=== PATIENT | male | born 1955 | race Caucasian/White ===

== ENCOUNTER 2020-07-08 14:11 | Inpatient (IN) ==
[2020-07-17] MEDS ORDERED: DEXTROSE 50% 25 GM/50 ML VIAL IV PRN (08:10)
[2020-07-17] MEDS ORDERED: CEFUROXIME INJ 1,500 MG in SYRINGE 1 EACH IV ONE (08:10)
[2020-07-17] MEDS ORDERED: GLUCAGON 1 MG VIAL IM PRN (08:10)
[2020-07-17 08:41] LABS: ABG Base Excess 6.1 MMOL/L (-2.5-2.5); ABG HCO3 30.1 MMOL/L (20-26); ABG Oxygen Saturation 97.6 % (95-100); ABG PCO2 41.2 MM HG (35-48); ABG PH 7.482 (7.35-7.45); ABG PO2 97.5 MM HG (80-95); ABG TCO2 31.4 MMOL/L (23-27)
[2020-07-17] MEDS ORDERED: CHLORHEXIDINE 4% SOLN 118 ML BOTTLE TOP SCH (09:00)
[2020-07-17] MEDS ORDERED: NITROGLYCERIN SL 0.4 MG TABLET SL PRN (09:48)
[2020-07-17] MEDS ORDERED: CLORAZEPATE 3.75 MG TABLET PO PRN (09:48)
[2020-07-17] MEDS ORDERED: MORPHINE 4 MG/1 ML VIAL IV PRN (09:48)
[2020-07-17] MEDS ORDERED: hydrALAZINE 20 MG/1 ML VIAL IV PRN (09:49)
[2020-07-17] MEDS ORDERED: PANTOPRAZOLE 40 MG TABLET PO ONE (10:37)
[2020-07-17] MEDS ORDERED: DIAZEPAM 5 MG TABLET PO ONE (10:37)
[2020-07-17 10:40] LABS: Basophils # 0.1 10*3/uL (0.0-0.2); Eosinophils # 0.2 10*3/uL (0.0-0.87); Eosinophils % 4.5 % (0.00-10.9); Hematocrit 43.9 VOL% (42.0-52.0); Hemoglobin 15.8 GM/DL (14.0-18.0); Immature Granulocytes % 0.2 %; Immature Granulocytes Absolute 0.01 #; Lymphocytes # 1.1 10*3/uL (1.4-4.0); Lymphocytes % 21.3 % (21.2-54.2); Mean Corpuscular Volume 91.3 FL (87-102); Mean Platelet Volume 9.6 FL (9.6-12.0); Monocytes % 7.9 % (1.7-12.7); Neutrophils % 65.1 % (38.7-73.9); Platelet Count 158 T/CUMM (130-400); Red Blood Count 4.81 MC/CUMM (3.8-5.5); Red Cell Distribution Width 12.6 % (9.3-17.3); White Blood Count 5.1 T/CUMM (4-12)
[2020-07-17] MEDS: CHLORHEXIDINE 0.12% ORAL RINSE 60 ML BOTTLE SWISH/SPIT SCH ×2 (10:42→21:56)
[2020-07-17 11:01] LABS: Albumin 3.8 G/DL (3.4-5.0); Bilirubin,Total 0.8 MG/DL (0.2-1.0); Osmolality,Calculated 282.3 MOS/KG (273-304)
[2020-07-17] MEDS: CHLORHEXIDINE 4% SOLN 118 ML BOTTLE TOP SCH ×2 (15:32→21:56)
[2020-07-18] MEDS ORDERED: PAPAVERINE 60 MG/2 ML VIAL ONE (05:19)
[2020-07-18] MEDS ORDERED: VANCOMYCIN 1,000 MG VIAL ONE (05:19)
[2020-07-18] MEDS ORDERED: VANCOMYCIN 500 MG VIAL ONE (05:19)
[2020-07-18] MEDS: CHLORHEXIDINE 4% SOLN 118 ML BOTTLE TOP SCH (05:45)
[2020-07-18] MEDS ORDERED: AMINOCAPROIC ACID 5,000 MG/20 ML VIAL ONE ×4 (05:58→05:59)
[2020-07-18] MEDS ORDERED: SODIUM CHLORIDE 0.9% 250 ML IV ONE (06:00)
[2020-07-18] MEDS ORDERED: DIAZEPAM 5 MG TABLET PO ONE (06:00)
[2020-07-18] MEDS ORDERED: CEFUROXIME INJ 1,500 MG in SYRINGE 1 EACH IV ONE (06:00)
[2020-07-18] MEDS ORDERED: PANTOPRAZOLE 40 MG TABLET PO ONE (06:00)
[2020-07-18] MEDS ORDERED: MINERAL OIL/PETROLATUM OPH OINT 3.5 GM TUBE ONE (06:04)
[2020-07-18] MEDS ORDERED: VECURONIUM 10 MG VIAL IV ONE ×4 (06:09→09:40)
[2020-07-18] MEDS ORDERED: LIDOCAINE 2% 5 ML VIAL ONE ×2 (06:10→10:25)
[2020-07-18] MEDS ORDERED: SUFentanil 250 MCG/5 ML AMP ONE ×2 (06:11→07:56)
[2020-07-18] MEDS ORDERED: MIDAZOLAM 10 MG/2 ML VIAL ONE ×4 (06:11→09:38)
[2020-07-18] MEDS ORDERED: ETOMIDATE 40 MG/20 ML VIAL IV ONE (06:11)
[2020-07-18] MEDS ORDERED: CALCIUM CHLORIDE 1,000 MG/10 ML VIAL IV ONE ×2 (06:16→10:38)
[2020-07-18 07:42] LABS: ABG Base Excess 2.5 MMOL/L (-2.5-2.5); ABG HCO3 26.6 MMOL/L (20-26); ABG Oxygen Saturation 99.9 % (95-100); ABG PCO2 43.6 MM HG (35-48); ABG PH 7.409 (7.35-7.45); ABG TCO2 23.8 MMOL/L (23-27); Glucose Heart Surgery 105 MG/DL (74-106); Hematocrit Heart Surgery 42.7 PERCENT (42-52); Hemoglobin Heart Surgery 13.9 G/DL (14.0-18.0); Ionized Calcium Arterial 1.17 MMOL/L (1.21-1.46); PCO2 Patient Temp Arterial 43.6 MMHG; PH Patient Temp Arterial 7.409; Patient Temperature 37 CELCIUS; Potassium Heart/CVR 3.3 MMOL/L (3.5-5.1); Sodium Heart/CVR 141 MMOL/L (135-145)
[2020-07-18] MEDS ORDERED: SUCCINYLCHOLINE 200 MG/10 ML VIAL ONE (08:03)
[2020-07-18 08:53] LABS: Bilirubin,Urine Negative (Negative); Blood, Urine Negative (Negative); Glucose,Urine (UA) Negative (Negative); Ketones,Urine Negative (Negative); Mucus,Urine Occasional /LPF (Occasional); Nitrite,Urine Negative (Negative); Protein,Urine Negative; RBC,Urine 1 /HPF (0-4); Squamous Epithelial Cell,Urine Occasional /HPF (0-10); Urine Appearance CLEAR (Clear); Urine Color Yellow (Yellow); Urine Specific Gravity 1.019 (1.001-1.035); WBC,Urine <1 /HPF (0-6)
[2020-07-18 09:02] LABS: ABG Base Excess 3.9 MMOL/L (-2.5-2.5); ABG HCO3 27.6 MMOL/L (20-26); ABG Oxygen Saturation 81.6 % (95-100); ABG PCO2 41.7 MM HG (35-48); ABG PH 7.442 (7.35-7.45); ABG PO2 45.7 MM HG (80-95); ABG TCO2 25.8 MMOL/L (23-27); Glucose Heart Surgery 299 MG/DL (74-106); Hematocrit Heart Surgery 31.8 PERCENT (42-52); Hemoglobin Heart Surgery 10.3 G/DL (14.0-18.0); Ionized Calcium Arterial 0.97 MMOL/L (1.21-1.46); PH Patient Temp Arterial 7.486; PO2 Patient Temp Arterial 37.1 MM HG; Patient Temperature 34 CELCIUS; Potassium Heart/CVR 4.2 MMOL/L (3.5-5.1); Sodium Heart/CVR 131 MMOL/L (135-145)
[2020-07-18 09:35] LABS: Hemoglobin Heart Surgery 11.5 G/DL (14.0-18.0); PH Patient Temp Venous 7.495; PO2 Patient Temp Venous 40.7 MM HG; Potassium Heart/CVR 3.7 MMOL/L (3.5-5.1); VBG Base Excess 3.6 MEQ/L (0-4); VBG HCO3 27.9 MEQ/L (24-28); VBG Oxygen Saturation 85.2 %; VBG PCO2 41.1 MMHG (41-51); VBG PH 7.45; VBG PO2 50.2 MMHG (17-40)
[2020-07-18] MEDS ORDERED: PHENYLEPHRINE DRIP 40 MG/250 ML PREMIX IV ONE (09:40)
[2020-07-18] MEDS ORDERED: ALBUMIN 5% 12.5 GM/250 ML VIAL IV ONE (09:40)
[2020-07-18] MEDS: SODIUM CHLORIDE 0.9% 1,000 ML IV SCH (10:03)
[2020-07-18] MEDS: CHLORHEXIDINE 0.12% ORAL RINSE 60 ML BOTTLE SWISH/SPIT SCH ×2 (10:03→20:17)
[2020-07-18 10:24] LABS: ABG Base Excess 2.2 MMOL/L (-2.5-2.5); ABG HCO3 26.4 MMOL/L (20-26); ABG TCO2 22.7 MMOL/L (23-27); Glucose Heart Surgery 167 MG/DL (74-106); Hematocrit Heart Surgery 33.3 PERCENT (42-52); Hemoglobin Heart Surgery 10.8 G/DL (14.0-18.0); Ionized Calcium Arterial 1.17 MMOL/L (1.21-1.46); Patient Temperature 37 CELCIUS; Potassium Heart/CVR 3.3 MMOL/L (3.5-5.1); Sodium Heart/CVR 136 MMOL/L (135-145)
[2020-07-18] MEDS ORDERED: ALBUMIN 25% 25 GM/100 ML VIAL IV ONE (10:25)
[2020-07-18] MEDS ORDERED: methylPREDNISolone SOD SUC 1,000 MG/8 ML VIAL ONE (10:26)
[2020-07-18] MEDS ORDERED: MANNITOL 100 GM/500 ML BAG IV ONE (10:26)
[2020-07-18] MEDS ORDERED: HEPARIN/NACL 0.9% 2 UNITS/ML 500 ML IV ONE (10:26)
[2020-07-18] MEDS ORDERED: PHENYLEPHRINE DRIP 20 MG/250 ML PREMIX IV ONE (10:26)
[2020-07-18] MEDS ORDERED: SEVOFLURANE 1 UNIT/15 MINUTE INH ONE (10:26)
[2020-07-18] MEDS ORDERED: DEXTROSE 5% KCL 20 MEQ 20 MEQ/1,000 ML BAG IV ONE (10:26)
[2020-07-18] MEDS ORDERED: MAGNESIUM SULFATE 5 GM/10 ML VIAL IV ONE (10:26)
[2020-07-18] MEDS ORDERED: PROTAMINE SULFATE 250 MG/25 ML VIAL IV ONE (10:26)
[2020-07-18] MEDS ORDERED: LACTATED RINGERS 1,000 ML IV ONE (10:27)
[2020-07-18] MEDS ORDERED: FUROSEMIDE 20 MG/2 ML VIAL ONE (10:27)
[2020-07-18] MEDS ORDERED: SODIUM CHLORIDE 0.9% 1,000 ML IV ONE (10:27)
[2020-07-18] MEDS ORDERED: SODIUM BICARBONATE 50 MEQ/50 ML VIAL IV ONE (10:27)
[2020-07-18] MEDS ORDERED: HEPARIN 10,000 UNIT/10 ML VIAL ONE (10:27)
[2020-07-18] MEDS ORDERED: MAGNESIUM SULF RIDER 2 GM in PREMIX 1 EACH IV PRN (10:47)
[2020-07-18] MEDS ORDERED: CALCIUM CHLORIDE 1,000 MG/10 ML SYRINGE IV PRN (10:47)
[2020-07-18] MEDS ORDERED: MORPHINE 10 MG/1 ML VIAL IV PRN (10:47)
[2020-07-18] MEDS ORDERED: ACETAMINOPHEN 650 MG SUPP RECTAL PRN (10:47)
[2020-07-18] MEDS ORDERED: MAGNESIUM SULF RIDER 4 GM in PREMIX 1 EACH IV PRN (10:47)
[2020-07-18] MEDS ORDERED: CHLORHEXIDINE 4% SOLN 118 ML BOTTLE TOP PRN (10:47)
[2020-07-18] MEDS ORDERED: ONDANSETRON 4 MG/2 ML VIAL IV PRN (10:47)
[2020-07-18] MEDS ORDERED: POTASSIUM CHLORIDE RIDER 10 MEQ in PREMIX 1 EACH IV PRN (10:47)
[2020-07-18] MEDS ORDERED: INSULIN REGULAR 100 UNIT/ML IV ONE (10:47)
[2020-07-18] MEDS ORDERED: INSULIN REGULAR 100 UNIT/ML IV PRN (10:47)
[2020-07-18] MEDS ORDERED: LACTATED RINGERS 250 ML IV PRN (10:47)
[2020-07-18] MEDS ORDERED: DEXTROSE 50% 25 GM/50 ML VIAL IV PRN ×2 (10:47)
[2020-07-18] MEDS ORDERED: PHENYLEPHRINE DRIP 40 MG/250 ML PREMIX IV PRN (10:47)
[2020-07-18] MEDS ORDERED: MIDAZOLAM 2 MG/2 ML VIAL IV PRN (10:47)
[2020-07-18] MEDS ORDERED: NITROPRUSSIDE 100 MG in DEXTROSE 5% 250 ML IV PRN (10:47)
[2020-07-18] MEDS ORDERED: VECURONIUM 10 MG VIAL IV PRN ×2 (10:47)
[2020-07-18] MEDS ORDERED: MIDAZOLAM 10 MG/2 ML VIAL IV PRN (10:47)
[2020-07-18] MEDS: SODIUM CHLORIDE 0.45% 1,000 ML IV SCH ×2 (11:00)
[2020-07-18] MEDS ORDERED: INSULIN REGULAR DRIP 100 ML IV SCH (11:00)
[2020-07-18] MEDS ORDERED: NITROPRUSSIDE 50 MG/2 ML VIAL ONE (11:13)
[2020-07-18 11:32] LABS: ABG Base Excess 2.9 MMOL/L (-2.5-2.5); ABG PCO2 34.3 MM HG (35-48); ABG PH 7.487 (7.35-7.45); ABG TCO2 22.9 MMOL/L (23-27); Basophils % 0.6 % (0.0-0.8); Glucose Heart Surgery 147 MG/DL (74-106); Hematocrit Heart Surgery 36.1 PERCENT (42-52); Hemoglobin Heart Surgery 11.7 G/DL (14.0-18.0); Potassium Heart/CVR 3.8 MMOL/L (3.5-5.1); Red Cell Distribution Width 12.7 % (9.3-17.3)
[2020-07-18 11:34] LABS: Eosinophils # 0.1 10*3/uL (0.0-0.87); Immature Granulocytes % 0.4 %; Immature Granulocytes Absolute 0.02 #; Lymphocytes # 0.5 10*3/uL (1.4-4.0); Lymphocytes % 9.9 % (21.2-54.2); Mean Corpuscular HGB Conc 35.5 GM/DL (32-36); Mean Corpuscular Volume 92.4 FL (87-102); Mean Platelet Volume 9.6 FL (9.6-12.0); Monocytes % 5.6 % (1.7-12.7); Neutrophils % 81.5 % (38.7-73.9); Platelet Count 133 T/CUMM (130-400)
[2020-07-18 11:35] LABS: Hemoglobin 11.7 GM/DL (14.0-18.0); Red Blood Count 3.57 MC/CUMM (3.8-5.5)
[2020-07-18 11:45] LABS: INR 1.2; PT Patient Result 12.4 SECS (9.8-11.9); Partial Thromboplastin Time 29.2 SECS (23.9-33.8)
[2020-07-18 11:51] LABS: CKMB % 7.1 %
[2020-07-18 11:53] LABS: Troponin I 1.04 NG/ML (0.00-0.045)
[2020-07-18 12:05] LABS: Albumin 3.6 G/DL (3.4-5.0); Bilirubin,Total 1.4 MG/DL (0.2-1.0); Calcium 8.8 MG/DL (8.5-10.1); Osmolality,Calculated 287.1 MOS/KG (273-304); Total Protein 6.1 G/DL (6.4-8.3)
[2020-07-18 12:39] LABS: ABG Base Excess 2.2 MMOL/L (-2.5-2.5); ABG HCO3 26.4 MMOL/L (20-26); ABG Oxygen Saturation 98.7 % (95-100); ABG PH 7.446 (7.35-7.45); ABG TCO2 22.9 MMOL/L (23-27); Glucose Heart Surgery 146 MG/DL (74-106); Hemoglobin Heart Surgery 12.7 G/DL (14.0-18.0); Potassium Heart/CVR 3.3 MMOL/L (3.5-5.1)
[2020-07-18] MEDS: LACTATED RINGERS 1,000 ML IV PRN ×3 (12:53→16:27)
[2020-07-18] MEDS: POTASSIUM CHLORIDE RIDER 20 MEQ in PREMIX 1 EACH IV PRN ×4 (12:57→22:31)
[2020-07-18] MEDS: ALBUMIN 5% 12.5 GM in PREMIX 1 EACH IV PRN ×2 (13:36→15:50)
[2020-07-18 14:14] LABS: ABG Base Excess 1.5 MMOL/L (-2.5-2.5); ABG HCO3 25.2 MMOL/L (20-26); ABG Oxygen Saturation 97.7 % (95-100); ABG PCO2 36.5 MM HG (35-48); ABG PH 7.457 (7.35-7.45); ABG PO2 116.3 MM HG (80-95); ABG TCO2 26.3 MMOL/L (23-27); Glucose Heart Surgery 167 MG/DL (74-106); Potassium Heart/CVR 3.7 MMOL/L (3.5-5.1)
[2020-07-18] MEDS: CEFUROXIME INJ 1,500 MG in SYRINGE 1 EACH IV SCH (17:45)
[2020-07-18 18:03] LABS: ABG Base Excess -0.7 MMOL/L (-2.5-2.5); ABG HCO3 23.9 MMOL/L (20-26); ABG Oxygen Saturation 98.4 % (95-100); ABG PH 7.437 (7.35-7.45); ABG TCO2 20.6 MMOL/L (23-27); Glucose Heart Surgery 177 MG/DL (74-106); Hematocrit Heart Surgery 33.8 PERCENT (42-52); Potassium Heart/CVR 3.6 MMOL/L (3.5-5.1)
[2020-07-18] MEDS: MORPHINE 4 MG/1 ML VIAL IV PRN (18:16)
[2020-07-18] MEDS ORDERED: FUROSEMIDE 40 MG/4 ML VIAL IV PRN (19:14)
[2020-07-18 20:17] LABS: ABG Base Excess -0.9 MMOL/L (-2.5-2.5); ABG HCO3 23.7 MMOL/L (20-26); ABG Oxygen Saturation 97.8 % (95-100); ABG PCO2 38.5 MM HG (35-48); ABG PH 7.397 (7.35-7.45); ABG TCO2 21.1 MMOL/L (23-27); Glucose Heart Surgery 166 MG/DL (74-106); Hematocrit Heart Surgery 35.5 PERCENT (42-52); Hemoglobin Heart Surgery 11.5 G/DL (14.0-18.0); Potassium Heart/CVR 3.9 MMOL/L (3.5-5.1)
[2020-07-18] MEDS: KETOROLAC 30 MG/1 ML VIAL IV SCH (20:17)
[2020-07-18 20:45] LABS: CKMB % 4.8 %
[2020-07-18 20:47] LABS: Troponin I 2.74 NG/ML (0.00-0.045)
[2020-07-18 21:08] LABS: ABG Base Excess 0.1 MMOL/L (-2.5-2.5); ABG HCO3 24.9 MMOL/L (20-26); ABG Oxygen Saturation 97.2 % (95-100); ABG PCO2 40.7 MM HG (35-48); ABG PH 7.404 (7.35-7.45); ABG PO2 109.1 MM HG (80-95); ABG TCO2 26.1 MMOL/L (23-27); Glucose Heart Surgery 163 MG/DL (74-106); Hemoglobin Heart Surgery 11.7 G/DL (14.0-18.0); Potassium Heart/CVR 3.7 MMOL/L (3.5-5.1)
[2020-07-18 22:09] LABS: ABG Base Excess 0.5 MMOL/L (-2.5-2.5); ABG HCO3 24.9 MMOL/L (20-26); ABG Oxygen Saturation 97.3 % (95-100); ABG PCO2 42.6 MM HG (35-48); ABG PH 7.387 (7.35-7.45); ABG PO2 96.5 MM HG (80-95); Glucose Heart Surgery 157 MG/DL (74-106); Hematocrit Heart Surgery 34.6 PERCENT (42-52); Hemoglobin Heart Surgery 11.2 G/DL (14.0-18.0); Potassium Heart/CVR 3.8 MMOL/L (3.5-5.1)
[2020-07-19] MEDS: KETOROLAC 30 MG/1 ML VIAL IV SCH ×4 (01:23→22:11)
[2020-07-19] MEDS: MORPHINE 4 MG/1 ML VIAL IV PRN (02:01)
[2020-07-19 03:50] LABS: ABG Base Excess 2.5 MMOL/L (-2.5-2.5); ABG HCO3 27.7 MMOL/L (20-26); ABG Oxygen Saturation 96.9 % (95-100); ABG PCO2 45.8 MM HG (35-48); ABG TCO2 29.1 MMOL/L (23-27); Glucose Heart Surgery 146 MG/DL (74-106); Hemoglobin Heart Surgery 11.3 G/DL (14.0-18.0); Potassium Heart/CVR 3.9 MMOL/L (3.5-5.1)
[2020-07-19 04:07] LABS: Immature Granulocytes % 0.3 %; Immature Granulocytes Absolute 0.03 #; Lymphocytes # 0.6 10*3/uL (1.4-4.0); Lymphocytes % 6.6 % (21.2-54.2); Mean Corpuscular HGB Conc 34.4 GM/DL (32-36); Mean Corpuscular Volume 95.2 FL (87-102); Mean Platelet Volume 10.4 FL (9.6-12.0); Monocytes % 6.8 % (1.7-12.7); Neutrophils % 86.3 % (38.7-73.9); Platelet Count 136 T/CUMM (130-400); Red Blood Count 3.36 MC/CUMM (3.8-5.5); Red Cell Distribution Width 13.2 % (9.3-17.3); White Blood Count 8.7 T/CUMM (4-12)
[2020-07-19 04:19] LABS: CKMB % 3.2 %
[2020-07-19 04:22] LABS: Troponin I 3.69 NG/ML (0.00-0.045)
[2020-07-19 04:47] LABS: Albumin 3.4 G/DL (3.4-5.0); Bilirubin,Direct 0.2 MG/DL (0.0-0.20); Bilirubin,Total 0.8 MG/DL (0.2-1.0); Calcium 8.1 MG/DL (8.5-10.1); Osmolality,Calculated 285.3 MOS/KG (273-304)
[2020-07-19] MEDS: CEFUROXIME INJ 1,500 MG in SYRINGE 1 EACH IV SCH ×2 (05:55→18:51)
[2020-07-19] MEDS ORDERED: INSULIN REGULAR 100 UNIT/ML SUBCUT SCH (07:30)
[2020-07-19] MEDS ORDERED: OMEGA 3 ACID ETHYL ESTERS 1 GM CAPSULE PO SCH (09:00)
[2020-07-19] MEDS: ASPIRIN EC 325 MG TABLET PO SCH (09:29)
[2020-07-19] MEDS: CHLORHEXIDINE 0.12% ORAL RINSE 60 ML BOTTLE SWISH/SPIT SCH ×2 (09:30→22:11)
[2020-07-19] MEDS: LISINOPRIL/HCTZ 20-25 MG TABLET PO SCH (09:33)
[2020-07-19] MEDS: SODIUM CHLORIDE 0.45% 1,000 ML IV SCH ×2 (10:43)
[2020-07-19] MEDS ORDERED: ACETAMINOPHEN 325 MG TABLET PO PRN (10:49)
[2020-07-19] MEDS ORDERED: MAGNESIUM SULF RIDER 4 GM in PREMIX 1 EACH IV PRN (10:49)
[2020-07-19] MEDS ORDERED: MAGNESIUM SULF RIDER 2 GM in PREMIX 1 EACH IV PRN (10:49)
[2020-07-19] MEDS ORDERED: MAGNESIUM HYDROXIDE SUSP 30 ML UDCUP PO PRN (10:49)
[2020-07-19] MEDS ORDERED: ONDANSETRON 4 MG/2 ML VIAL IV PRN (10:49)
[2020-07-19] MEDS ORDERED: oxyCODONE/ACETAMINOPHEN 5-325 MG TABLET PO PRN (10:49)
[2020-07-19] MEDS ORDERED: ALUMINUM/MAGNES/SIMETH MAX STR 30 ML UDCUP PO PRN (10:49)
[2020-07-19] MEDS ORDERED: DEXTROSE 50% 25 GM/50 ML VIAL IV PRN (10:49)
[2020-07-19] MEDS ORDERED: ZALEPLON 5 MG CAPSULE PO PRN (10:49)
[2020-07-19] MEDS ORDERED: GLUCAGON 1 MG VIAL IM PRN (10:49)
[2020-07-19] MEDS ORDERED: SODIUM CHLOR 0.45% KCL 20 MEQ 20 MEQ/1,000 ML BAG IV SCH (10:49)
[2020-07-19 11:29] LABS: CKMB % 2.2 %
[2020-07-19 11:36] LABS: Troponin I 3.51 NG/ML (0.00-0.045)
[2020-07-19] MEDS: SIMVASTATIN 20 MG TABLET PO SCH (22:11)
[2020-07-20] MEDS: KETOROLAC 30 MG/1 ML VIAL IV SCH ×4 (02:31→20:30)
[2020-07-20] MEDS ORDERED: FUROSEMIDE 40 MG/4 ML VIAL IV ONE (06:00)
[2020-07-20 06:38] LABS: Basophils % 0.2 % (0.0-0.8); Eosinophils % 0.1 % (0.00-10.9); Hematocrit 34.2 VOL% (42.0-52.0); Hemoglobin 11.5 GM/DL (14.0-18.0); Immature Granulocytes % 0.5 %; Immature Granulocytes Absolute 0.05 #; Lymphocytes # 1.1 10*3/uL (1.4-4.0); Lymphocytes % 11.5 % (21.2-54.2); Mean Corpuscular HGB Conc 33.6 GM/DL (32-36); Mean Corpuscular Volume 98.6 FL (87-102); Mean Platelet Volume 11.5 FL (9.6-12.0); Monocytes % 10.1 % (1.7-12.7); Neutrophils % 77.6 % (38.7-73.9); Platelet Count 108 T/CUMM (130-400); Red Blood Count 3.47 MC/CUMM (3.8-5.5); Red Cell Distribution Width 13.3 % (9.3-17.3); White Blood Count 9.4 T/CUMM (4-12)
[2020-07-20 06:59] LABS: Albumin 3.2 G/DL (3.4-5.0); Bilirubin,Direct 0.23 MG/DL (0.0-0.20); Bilirubin,Total 1.2 MG/DL (0.2-1.0); Calcium 8.2 MG/DL (8.5-10.1); Osmolality,Calculated 284.3 MOS/KG (273-304); Total Protein 6.2 G/DL (6.4-8.3)
[2020-07-20 07:09] LABS: Alanine Aminotransferase 42 U/L (16-61); Albumin 3.2 G/DL (3.4-5.0); Alkaline Phosphatase 57 U/L (45-117); Aspartate Amino Transferase 35 U/L (0-37); Bilirubin,Indirect 0.9 MG/DL (0.0-1.0); Total Protein 6.2 G/DL (6.4-8.3)
[2020-07-20 08:14] LABS: Platelet Estimate Adequate
[2020-07-20] MEDS: LISINOPRIL/HCTZ 20-25 MG TABLET PO SCH (08:34)
[2020-07-20] MEDS: FERROUS SULFATE 325 MG TABLET PO SCH (08:35)
[2020-07-20] MEDS: DOCUSATE SODIUM 100 MG CAPSULE PO SCH (08:35)
[2020-07-20] MEDS: ASPIRIN EC 325 MG TABLET PO SCH (08:35)
[2020-07-20] MEDS: PANTOPRAZOLE 40 MG TABLET PO SCH (08:35)
[2020-07-20] MEDS: CHLORHEXIDINE 0.12% ORAL RINSE 60 ML BOTTLE SWISH/SPIT SCH ×2 (08:36→20:28)
[2020-07-20] MEDS ORDERED: AMIODARONE INJ 150 MG in DEXTROSE 5% 100 ML IV ONE (19:24)
[2020-07-20] MEDS ORDERED: DILTIAZEM 25 MG/5 ML VIAL IV ONE (19:26)
[2020-07-20] MEDS ORDERED: AMIODARONE INJ 450 MG in DEXTROSE 5% 241 ML IV SCH (19:30)
[2020-07-20] MEDS: SIMVASTATIN 20 MG TABLET PO SCH (20:28)
[2020-07-21] MEDS ORDERED: AMIODARONE INJ 450 MG in DEXTROSE 5% 241 ML IV SCH (01:15)
[2020-07-21] MEDS: KETOROLAC 30 MG/1 ML VIAL IV SCH ×4 (02:22→21:16)
[2020-07-21 06:05] LABS: Basophils % 0.3 % (0.0-0.8); Eosinophils % 0.4 % (0.00-10.9); Hematocrit 32.6 VOL% (42.0-52.0); Hemoglobin 11.3 GM/DL (14.0-18.0); Immature Granulocytes % 0.4 %; Immature Granulocytes Absolute 0.03 #; Lymphocytes # 0.9 10*3/uL (1.4-4.0); Mean Corpuscular HGB Conc 34.7 GM/DL (32-36); Mean Corpuscular Volume 95.3 FL (87-102); Mean Platelet Volume 11.1 FL (9.6-12.0); Neutrophils % 79.9 % (38.7-73.9); Platelet Count 132 T/CUMM (130-400); Red Blood Count 3.42 MC/CUMM (3.8-5.5); Red Cell Distribution Width 13.1 % (9.3-17.3); White Blood Count 7.7 T/CUMM (4-12)
[2020-07-21 06:26] LABS: Bilirubin,Direct 0.28 MG/DL (0.0-0.20); Bilirubin,Total 1.2 MG/DL (0.2-1.0); Calcium 8.1 MG/DL (8.5-10.1); Total Protein 6.2 G/DL (6.4-8.3)
[2020-07-21 06:29] LABS: Alanine Aminotransferase 37 U/L (16-61); Alkaline Phosphatase 61 U/L (45-117); Aspartate Amino Transferase 26 U/L (0-37); Bilirubin,Indirect 0.7 MG/DL (0.0-1.0); Total Protein 6.2 G/DL (6.4-8.3)
[2020-07-21 06:36] LABS: Anisocytosis Slight; Platelet Estimate Adequate
[2020-07-21] MEDS ORDERED: POTASSIUM CHLORIDE 20 MEQ TABLET PO ONE (07:38)
[2020-07-21] MEDS: ASPIRIN EC 325 MG TABLET PO SCH (08:40)
[2020-07-21] MEDS: FERROUS SULFATE 325 MG TABLET PO SCH (08:40)
[2020-07-21] MEDS: LISINOPRIL/HCTZ 20-25 MG TABLET PO SCH (08:40)
[2020-07-21] MEDS: DOCUSATE SODIUM 100 MG CAPSULE PO SCH (08:40)
[2020-07-21] MEDS: PANTOPRAZOLE 40 MG TABLET PO SCH (08:40)
[2020-07-21] MEDS: AMIODARONE 200 MG TABLET PO SCH ×2 (08:47→21:16)
[2020-07-21] MEDS: CHLORHEXIDINE 0.12% ORAL RINSE 60 ML BOTTLE SWISH/SPIT SCH ×2 (08:47→21:16)
[2020-07-21] MEDS: ASCORBIC ACID 500 MG TABLET PO SCH ×2 (08:47→21:15)
[2020-07-21] MEDS ORDERED: POLYETHYLENE GLYCOL POWDER 17 GM PACK PO SCH (09:00)
[2020-07-21] MEDS: SIMVASTATIN 20 MG TABLET PO SCH (21:16)
[2020-07-21] MEDS: CLORAZEPATE 3.75 MG TABLET PO PRN (21:16)
[2020-07-22] MEDS: POTASSIUM CHLORIDE 20 MEQ TABLET PO PRN ×6 (00:08→12:00)
[2020-07-22] MEDS: dilTIAZem Drip 125 MG/125 ML PREMIX IV SCH ×2 (00:53→21:34)
[2020-07-22] MEDS: KETOROLAC 30 MG/1 ML VIAL IV SCH ×4 (03:05→21:26)
[2020-07-22 06:52] LABS: Basophils % 0.4 % (0.0-0.8); Eosinophils # 0.2 10*3/uL (0.0-0.87); Hematocrit 31.6 VOL% (42.0-52.0); Hemoglobin 10.9 GM/DL (14.0-18.0); Immature Granulocytes % 0.6 %; Immature Granulocytes Absolute 0.03 #; Lymphocytes # 0.7 10*3/uL (1.4-4.0); Lymphocytes % 15.6 % (21.2-54.2); Mean Corpuscular HGB Conc 34.5 GM/DL (32-36); Mean Corpuscular Volume 95.2 FL (87-102); Mean Platelet Volume 11.5 FL (9.6-12.0); Monocytes % 14.3 % (1.7-12.7); Neutrophils % 65.1 % (38.7-73.9); Platelet Count 113 T/CUMM (130-400); Red Blood Count 3.32 MC/CUMM (3.8-5.5); Red Cell Distribution Width 12.8 % (9.3-17.3); White Blood Count 4.8 T/CUMM (4-12)
[2020-07-22 07:10] LABS: Calcium 8.2 MG/DL (8.5-10.1); Osmolality,Calculated 280.5 MOS/KG (273-304)
[2020-07-22 07:27] LABS: Hypochromasia 1+; Microcytosis 1+
[2020-07-22] MEDS: ASCORBIC ACID 500 MG TABLET PO SCH ×2 (08:54→21:26)
[2020-07-22] MEDS: FERROUS SULFATE 325 MG TABLET PO SCH (08:54)
[2020-07-22] MEDS: DOCUSATE SODIUM 100 MG CAPSULE PO SCH (08:54)
[2020-07-22] MEDS: ASPIRIN EC 325 MG TABLET PO SCH (08:55)
[2020-07-22] MEDS: CHLORHEXIDINE 0.12% ORAL RINSE 60 ML BOTTLE SWISH/SPIT SCH ×2 (08:55→21:26)
[2020-07-22] MEDS: LISINOPRIL/HCTZ 20-25 MG TABLET PO SCH (08:55)
[2020-07-22] MEDS: AMIODARONE 200 MG TABLET PO SCH ×2 (08:55→21:26)
[2020-07-22] MEDS: PANTOPRAZOLE 40 MG TABLET PO SCH (08:55)
[2020-07-22] MEDS ORDERED: LISINOPRIL/HCTZ 20-25 MG TABLET PO SCH (10:00)
[2020-07-22] MEDS: SIMVASTATIN 20 MG TABLET PO SCH (21:26)
[2020-07-22] MEDS: CLORAZEPATE 3.75 MG TABLET PO PRN (22:34)
[2020-07-23] MEDS: KETOROLAC 30 MG/1 ML VIAL IV SCH ×2 (02:33→09:52)
[2020-07-23 05:09] LABS: Basophils % 0.4 % (0.0-0.8); Eosinophils # 0.3 10*3/uL (0.0-0.87); Eosinophils % 6.7 % (0.00-10.9); Hematocrit 30.7 VOL% (42.0-52.0); Hemoglobin 10.7 GM/DL (14.0-18.0); Immature Granulocytes % 0.4 %; Immature Granulocytes Absolute 0.02 #; Lymphocytes # 0.8 10*3/uL (1.4-4.0); Mean Corpuscular HGB Conc 34.9 GM/DL (32-36); Mean Corpuscular Volume 94.2 FL (87-102); Mean Platelet Volume 10.7 FL (9.6-12.0); Monocytes % 12.8 % (1.7-12.7); Neutrophils % 61.7 % (38.7-73.9); Platelet Count 148 T/CUMM (130-400); Red Blood Count 3.26 MC/CUMM (3.8-5.5); Red Cell Distribution Width 12.7 % (9.3-17.3); White Blood Count 4.6 T/CUMM (4-12)
[2020-07-23 05:47] LABS: Alanine Aminotransferase 45 U/L (16-61); Albumin 2.7 G/DL (3.4-5.0); Alkaline Phosphatase 71 U/L (45-117); Aspartate Amino Transferase 25 U/L (0-37); Bilirubin,Indirect 0.4 MG/DL (0.0-1.0); Blood Urea Nitrogen 14 MG/DL (7-18); Estimated Glom Filtration Rate 125 ML/MIN; Glucose 112 MG/DL (74-106); Osmolality,Calculated 280.4 MOS/KG (273-304); Total Protein 5.9 G/DL (6.4-8.3)
[2020-07-23 05:49] LABS: Troponin I 0.388 NG/ML (0.00-0.045)
[2020-07-23 08:00] VITALS: BP 145/71
[2020-07-23] MEDS ORDERED: FUROSEMIDE 20 MG TABLET PO SCH (09:00)
[2020-07-23] MEDS ORDERED: LISINOPRIL/HCTZ 20-25 MG TABLET PO SCH (09:00)
[2020-07-23] MEDS ORDERED: POTASSIUM CHLORIDE 10 MEQ TABLET PO SCH (09:00)
[2020-07-23] MEDS: AMIODARONE 200 MG TABLET PO SCH (09:41)
[2020-07-23] MEDS: DOCUSATE SODIUM 100 MG CAPSULE PO SCH (09:41)
[2020-07-23] MEDS: ASPIRIN EC 325 MG TABLET PO SCH (09:42)
[2020-07-23] MEDS: PANTOPRAZOLE 40 MG TABLET PO SCH (09:42)
[2020-07-23] MEDS: FERROUS SULFATE 325 MG TABLET PO SCH (09:43)
[2020-07-23] MEDS: CHLORHEXIDINE 0.12% ORAL RINSE 60 ML BOTTLE SWISH/SPIT SCH (09:44)
[2020-07-23] MEDS: CLORAZEPATE 3.75 MG TABLET PO PRN (09:47)
[2020-07-23] MEDS: ASCORBIC ACID 500 MG TABLET PO SCH (09:48)
== END 2020-07-23 11:40 | disposition home health service (06) | DRG 236 ==
LOC: N.TELEN 07-17 07:36 → N.CVR 07-18 10:44 → N.TELES 07-19 10:28